=== PATIENT | female | born 1990 | race Two or more races ===

== ENCOUNTER 2023-07-24 02:01 | Emergency (ER) | payer OTHER ==
[~2023-07-24] VITALS: Ht 167.6 cm; Wt 65.8 kg
[~2023-07-24 02:01] MED LIST: CIPRO500 MG PO; INTESTINEX680 M1 PO; PEPCID AC20 MG PO; URIN D.S. TABL1 EACH PO
[2023-07-24 04:34] LABS: HEMATOCRIT 40.6 % (36.0-45.00); HEMOGLOBIN 13.2 g/dL (12.0-15.00); MEAN CELL VOLUME 73.2 fL (80.00-100.00); MEAN CORPUSCULAR HEMOGLOBIN 23.9 pg (27.00-32.0); MEAN CORPUSCULAR HGB CONC 32.6 g/dl (32.0-36.0); PLATELET COUNT 281 K/uL (150-450); RED BLOOD COUNT 5.55 M/uL (4.00-6.00); RED CELL DISTRIBUTION WIDTH 15.3 % (11.5-14.5)
[2023-07-24 05:07] LABS: CALCIUM 9.1 mg/dL (8.5-10.1); CREATININE SERUM 0.67 mg/dL (0.55-1.02); GFR 100.75; POTASSIUM 3.57 mEq/L (3.5-5.1)
[2023-07-24 06:12] LABS: PH,URINE 5.5 (5.0-8.0); URINE APPEARANCE Clear; URINE BILIRRUBIN Negative (NEGATIVE); URINE BLOOD Negative; URINE COLOR Yellow; URINE GLUCOSE Negative (NEGATIVE); URINE LEUKOCYTE Negative; URINE NITRATE Negative; URINE PROTEIN Negative (NEGATIVE); URINE UROBILINOGEN 0.2 E.U./dl
[2023-07-24 06:15] LABS: URINE BACTERIA 675.2 uL (0.0-1933); URINE EPITHELIAL CELLS 14.9 uL (0.0-38.8); URINE RBC 3.8 uL (0.0-20.8); URINE WBC 6.6 uL (0.0-23.2)
== END 2023-07-24 11:28 | disposition home or self-care (01) ==
LOC: ER 02:01
PROVIDERS: General Practice
DX: K52.89 Other specified noninfective gastroenteritis and colitis (principal)

== ENCOUNTER 2025-04-06 10:51 | Emergency (ER) | payer OTHER ==
[~2025-04-06] VITALS: Ht 154.9 cm; Wt 65.8 kg
[2025-04-06] MEDS ORDERED: DIPHENHYDRAMINE HCL 50 MG/ML VIAL 1ML IV ONE (12:15)
[2025-04-06] MEDS ORDERED: DEXAMETHASONE SODIUM PHOSPHATE 4 MG/ML VIAL IV ONE (12:15)
[2025-04-06] MEDS ORDERED: DEXAMETHASONE SODIUM PHOSPHATE 4 MG/ML VIAL ONE ×2 (12:43→13:06)
[2025-04-06] MEDS ORDERED: DIPHENHYDRAMINE HCL 50 MG/ML VIAL 1ML ONE (12:43)
[2025-04-06] MEDS ORDERED: ALLEGRA-D 24 H1 EACH PO (13:33)
[2025-04-06] MEDS ORDERED: CORTISONE60 GM TOP (13:33)
[2025-04-06] MEDS ORDERED: MEDROLPACK PO (13:33)
== END 2025-04-06 13:50 | disposition home or self-care (01) ==
LOC: ER 10:51
DX: T78.49XA Other allergy, initial encounter (principal); X58.XXXA Exposure to other specified factors, initial encounter; L30.9 Dermatitis, unspecified
CPT/HCPCS: 96365; 99282; J1100; J1200